=== PATIENT | female | born 1980 | race Caucasian/White ===

== ENCOUNTER 2023-12-19 15:47 | Outpatient (CLI) | payer OTHER, SELFPAY ==
--- NOTE | ~2023-12-19 | CT_ITS ---
EXAMINATION:CT diagnostic chest wo con DATE: 12/19/2023 16:06 INDICATION: Lung nodule. TECHNIQUE: Computed tomography (CT) of the chest was performed without intravenous contrast. Automate d exposure control and iterative reconstruction technique were employed. The dose-length product (DLP ) was 426.26 mGy-cm. COMPARISON: CT abdomen and pelvis 11/12/15 FINDINGS: Calcified right lung nodules and calcified right hilar and mediastinal lymph nodes are cons istent with old granulomatous disease. There are few scattered nodules in the lungs measuring up to 4 mm, likely benign. No pleural effusion. The heart size is normal. No pericardial effusion. There are changes of cholecystectomy. Calcifications in the spleen are consistent with old granulomatous disea se. There is mild thoracic spondylosis. IMPRESSION: 1. Small pulmonary nodules, likely benign. Reviewed, dictated and finalized at location A.
== END 2023-12-19 15:48 ==
LOC: MICIMG 15:53
PROVIDERS: PCP Registered Nurse; Visit Provider Registered Nurse
DX: R91.1 Solitary pulmonary nodule (principal); R91.8 Other nonspecific abnormal finding of lung field
CPT/HCPCS: 71250